=== PATIENT | female | born 1980 | race Caucasian/White ===

== ENCOUNTER 2017-07-16 07:56 | Inpatient (IN) | payer OTHER, BC ==
[~2017-07-16] VITALS: Ht 167.6 cm; Wt 72.6 kg
[2017-07-16] MEDS ORDERED: diphenhydrAMINE 50 MG CAPSULE PO PRN (16:00)
[2017-07-16] MEDS ORDERED: DICYCLOMINE HCL 20 MG TABLET PO PRN (16:00)
[2017-07-16] MEDS ORDERED: ONDANSETRON 4 MG/2 ML VIAL IM PRN (16:00)
[2017-07-16] MEDS ORDERED: LOPERAMIDE HCL 2 MG CAPSULE PO PRN ×2 (16:00)
[2017-07-16] MEDS ORDERED: ONDANSETRON ODT 4 MG TAB.RAPDIS SL PRN (16:00)
[2017-07-16] MEDS ORDERED: MAG HYDROX/AL HYDROX/SIMETH 30 ML LIQUID UDC PO PRN (16:00)
--- NOTE | 2017-07-16 16:05 | NUR ---
PRE ASSESSMENT Pt received in intake office. Pt states came from home. Pt 36 y/o female. Pt alert and oriented to name, place, and time. Perrla. Skin warm and dry to touch. Respirations even and unlabored. Pt with periods of closing eyes during assessment. Pt denies any sz history. VS wnl. jw=627/60 p=80 t=98.3 r=16 o2=96% @ ra. No distress noted at this time. Explained to pt of the unit rules with acknowledgment.
--- NOTE | 2017-07-16 16:09 | NUR ---
ADMISSION Pt 36 y/o female admitted for heroin methamphetamine dependence. Pt alert and oriented to name, place, and time. Perrla. Skin warm and dry to touch. Respirations even and unlabored. No hand tremors noted. Pt appears slightly disheveled. Pt with periods of closing eyes during assessment. Skin clear. Pt denies any seizure history. Pt states does not have pmd. Pt was seen by MD. Initial cows=6. Oriented pt to unit and room. No distress noted at this time. substance hx: - heroin smoke 1-2 gm daily x 1.5 years; last used 07/16/17 1/4 gm . total 12 years - methamphetamine smoke 8 ball in 5 days, used daily x 1.5 years; last used 07/16/17 1/4 gm; total 19 years - xanax po 1/2 of pink pill( not sure of dose) occasionally monthly or even longer; last used 06/09/17 1/2 of pink pill; total 2-3 years Pt denies any medical history treatment hx: [facility]
[2017-07-16] MEDS ORDERED: NICOTINE 14 MG/24HR PATCH TD PRN (16:15)
[2017-07-16] MEDS ORDERED: NICOTINE POLACRILEX 4 MG GUM-PK OF TEN BC PRN (16:15)
[2017-07-16 16:40] LABS: *AMPHETAMINE, URINE POSITIVE (NEGATIVE); *BARBITURATE, URINE NEGATIVE (NEGATIVE); *CANNABINOID, URINE NEGATIVE (NEGATIVE); *COCCAINE, URINE NEGATIVE (NEGATIVE); *OPIATE, URINE POSITIVE (NEGATIVE); *PHENCYCLIDINE SCREEN,URINE NEGATIVE (NEGATIVE)
[2017-07-16 17:19] LABS: *URINE HCG, QUAL NEGATIVE (NEGATIVE)
--- NOTE | 2017-07-16 18:30 | NUR ---
END OF SHIFT Pt 36 y/o female admitted for heroin cocaine dependence. Pt alert and oriented to name, place,and time. Perrla. Skin warm and dry to touch. Respirations even and unlabored. No hand tremors noted. Pt observed mostly in room and patio today. Pt was seen by MD today. Bed on lowest position with side rails x2up for safety. Call light within reach. No distress noted at this time.
[2017-07-16 18:41] LABS: BASOPHILS % (AUTO) 0.4 % (0.0-2.0); EOSINOPHILS # (AUTO) 0.2 K/uL (0.0-0.7); HEMATOCRIT 38.1 % (37-47); HEMOGLOBIN 12.3 G/DL (12.0-16.0); LYMPHOCYTES # (AUTO) 2.5 K/UL (0.8-4.8); LYMPHOCYTES % (AUTO) 31.5 % (20.5-51.5); MEAN CORPUSCULAR HEMOGLOBIN 27.9 UUG (27.0-31.0); MEAN CORPUSCULAR HGB CONC 32 g/dL (32.0-37.0); MEAN CORPUSCULAR VOLUME 86.3 FL (81.0-99.0); MONOCYTES # (AUTO) 0.6 K/UL (0.1-1.30); MONOCYTES % (AUTO) 7.5 % (0.0-11.0); NEUTROPHILS # (AUTO) 4.6 K/UL (1.8-8.9); NEUTROPHILS % (AUTO) 58.6 % (38.5-71.5); PLATELET COUNT (AUTO) 221 K/UL (150-450); RED BLOOD CELL COUNT(AUTO) 4.42 MIL/UL (4.2-5.4); WHITE BLOOD COUNT (AUTO) 7.9 K/UL (4.0-11.2)
[2017-07-16 18:43] LABS: ETHANOL < 3 MG/DL (0-0)
[2017-07-16 18:47] LABS: ALANINE AMINOTRANSFERASE 21 U/L (14-59); ALKALINE PHOSPHATASE 54 U/L (50-136); ASPARTATE AMINOTRANSFERASE 22 U/L (15-37); BILIRUBIN,TOTAL 0.2 mg/dL (0.2-1.0); CARBON DIOXIDE 30 mmol/L (21-32); CHLORIDE 104 mmol/L (98-107); CREATININE 0.8 mg/dL (0.6-1.3); GLUCOSE 98 mg/dL (74-106); MAGNESIUM 2.1 mg/dL (1.8-2.4); POTASSIUM 3.6 mmol/L (3.5-5.1); TOTAL PROTEIN, SERUM 6.9 g/dL (6.4-8.2); UREA NITROGEN, BLOOD 16 mg/dL (7-18)
[2017-07-16] MEDS: METHOCARBAMOL 750 MG TABLET PO PRN (19:06)
--- NOTE | 2017-07-16 19:08 | NUR ---
PRN Pt states has lower back aches 6/10. Robaxin po prn per MD order given and tolerated well.
--- NOTE | 2017-07-16 19:15 | NUR ---
START OF SHIFT Received 36 year old female patient admitted on 07/16/17 for Heroin, Methamphetamine and Xanax dependency. Pt is full code with NKA. She denies any PMHx or seizure history. She reports using Heroin (smoking) 1-2 grams daily for 1.5 years. Last dose was 1/4 gram on 07/16/17. Methamphetamine (smoke) 8 ball every 5 days for 1.5 years. Last dose was 1/4 gram on 07/16/17. And Xanax occasionally. Last dose was 0.25 mg on 06/09/17. Pt is scheduled to start 5 day Subutex taper on 07/17/17. Per endorsement, pt received PRN Robaxin for body aches. Pt is alert and oriented x4, breathing is even and unlabored. Safety measures in place. Will continue to monitor.
[2017-07-16 20:00] VITALS: BP 107/62
[2017-07-16] MEDS ORDERED: LORAZEPAM 1 MG TABLET PO ONE (21:00)
[2017-07-17] VITALS: BP 100/58
--- NOTE | 2017-07-17 | NUR ---
COWS/CIWA DEFERRED Pt lying in bed with eyes closed noted to be asleep. Respirations 16, breathing is even and unlabored. Safety measures in place. Will continue to monitor.
--- NOTE | 2017-07-17 04:00 | NUR ---
VITALS REFUSED, COWS/CIWA DEFERRED 0400 vitals refused. COWS and CIWA deferred d/t pt lying in bed with eyes closed noted to be asleep. Respirations 16, breathing is even and unlabored. Safety measures in place. Will monitor.
[2017-07-17] MEDS: BUPRENORPHINE HCL 2 MG TAB.SUBL SL PRN ×2 (05:42→10:06)
--- NOTE | 2017-07-17 05:43 | NUR ---
PRN SUBUTEX Pt complains of chills/sweats, restlessness, and body aches. COWS:12. PRN Subutex administered as ordered. Will monitor effectiveness.
--- NOTE | 2017-07-17 06:15 | NUR ---
PRN REASSESSMENT PRN medication effective. Pt is lying in bed with eyes closed noted to be asleep. No facial grimacing noted. Breathing even and unlabored. Safety measures in place. Will monitor.
--- NOTE | 2017-07-17 07:13 | NUR ---
END OF SHIFT Pt is a 36 year old female patient admitted on 07/16/17 for Heroin, Methamphetamine and Xanax dependency. Pt is full code with NKA. She received PRN Subutex 4 mg at 0542 for COWS of 12. Pt is scheduled to start 5 day Subutex taper today. She slept a total of 10 hrs, Intake: 680mL, Void: x2, BM:0, COWS:12, CIWA: 7. Pt remains alert and oriented x4, breathing is even and unlabored. Safety measures in place. Endorsed to oncoming shift.
--- NOTE | 2017-07-17 07:30 | NUR ---
START OF SHIFT Pt 36 y/o female admitted for heroin cocaine dependence. Pt received in room on bed awake. Pt alert and oriented to name, place,and time. Perrla. Skin warm and moist to touch. Respirations even and unlabored. Bilateral hand tremors noted. Pt appears restless in bed, with frequent position changing and irritable. It was reported that pt slept for 10 hours last night. Bed on lowest position with side rails x2up for safety. Call light within reach. No distress noted at this time.
[2017-07-17] MEDS: METHOCARBAMOL 750 MG TABLET PO PRN (08:06)
[2017-07-17] MEDS: BUPRENORPHINE HCL 2 MG TAB.SUBL SL SCH ×4 (08:07→20:33)
--- NOTE | 2017-07-17 08:14 | NUR ---
PRN Pt with c/o body aches 03/01. Robaxin po prn per MD order given and tolerated well.
--- NOTE | 2017-07-17 08:15 | NUR ---
PRN Pt with c/o nausea. Zofran odt prn per MD order given and tolerated well.
[2017-07-17 08:22] VITALS: BP 118/67
[2017-07-17] MEDS ORDERED: TUBERCULIN,PURIF.PROT.DERIV. 5 TU/0.1 ML TEST ID ONE (09:00)
[2017-07-17] MEDS ORDERED: GABAPENTIN 300 MG CAPSULE PO SCH (09:00)
--- NOTE | 2017-07-17 09:15 | NUR ---
PRN EVAL Pt states does not feel nauseated at this time.
--- NOTE | 2017-07-17 09:15 | NUR ---
PRN EVAL Pt states pain 5/10.
[2017-07-17] MEDS: IBUPROFEN 600 MG TABLET PO PRN (10:07)
[2017-07-17] MEDS: CLONIDINE HCL 0.1 MG TABLET PO PRN (10:07)
[2017-07-17] MEDS: HYDROXYZINE PAMOATE 25 MG CAPSULE PO PRN (10:07)
--- NOTE | 2017-07-17 10:19 | NUR ---
PRN Pt with cows=17. Subutex 4 mg sl prn per MD order given and tolerated well.
--- NOTE | 2017-07-17 10:20 | NUR ---
PRN Pt with c/o anxiety. Vistaril po prn per MD order given and tolerated well.
--- NOTE | 2017-07-17 10:20 | NUR ---
PRN Pt appears very anxious. Catapres po prn per MD order given and tolerated well.
--- NOTE | 2017-07-17 10:21 | NUR ---
PRN Pt with c/o aches of lower back 03/01. Motrin po prn per MD order given and tolerated well.
[2017-07-17] MEDS: ACETAMINOPHEN 325 MG TABLET PO PRN (10:24)
[2017-07-17] MEDS: LORAZEPAM 1 MG TABLET PO PRN (10:25)
--- NOTE | 2017-07-17 10:25 | NUR ---
PRN Pt appears agitated and very restless. Ativan 2mg po prn per MD orders given and tolerated well.
--- NOTE | 2017-07-17 10:28 | NUR ---
PRN Pt with c/o pain of bilateral legs 03/01. Tylenol po prn per MD order given and tolerated well.
--- NOTE | 2017-07-17 11:19 | NUR ---
PRN EVAL pt with cows=4.
--- NOTE | 2017-07-17 11:20 | NUR ---
PRN KRISTEL Pt observed on bed with eyes closed resting, but easily arousable to name. No distress noted at this time.
--- NOTE | 2017-07-17 11:21 | NUR ---
PRN KRISTEL Pt observed on bed with eyes closed resting, but easily arousable to name. No distress noted at this time.
--- NOTE | 2017-07-17 11:25 | NUR ---
PRN KRISTEL Pt observed on bed with eyes closed resting, but easily arousable to name. No distress noted at this time.
--- NOTE | 2017-07-17 11:28 | NUR ---
PRN KRISTEL Pt observed on bed with eyes closed resting, but easily arousable to name. No distress noted at this time.
[2017-07-17 12:00] VITALS: BP 113/66
--- NOTE | 2017-07-17 13:02 | NUR ---
NSG ENTRY Pt on bed with eyes closed resting, but easily arousable to name. Pt stated she does not want to take the subutex 4mg sl at this time. Told pt I will come back to offer the subutex4 mg sl at 1359. No distress noted at this time. cows=7
[2017-07-17] MEDS: GABAPENTIN 300 MG CAPSULE PO SCH ×2 (14:12→20:32)
[2017-07-17 16:00] VITALS: BP 103/61
--- NOTE | 2017-07-17 17:59 | NUR ---
END OF SHIFT Pt 36 y/o female admitted for heroin cocaine dependence. Pt alert and oriented to name, place,and time. Perrla. Skin warm and moist to touch. Respirations even and unlabored. Bilateral hand tremors noted. Pt with c/o body aches throughout this morning. Pt with periods of anxiety and agitation this morning. Pt observed mostly in room throughout the day. Pt did not attend group activity. Pt was seen by MD today. Pt medication compliant and tolerated well. No ASE noted. Bed on lowest position with side rails x2up for safety. Call light within reach. No distress noted at this time.
[2017-07-17 20:00] VITALS: BP 127/76
--- NOTE | 2017-07-17 20:00 | NUR ---
Start of Shift Notes Received 36 y/o female admitted 07/16/2017 for heroin cocaine dependence. A&Ox4. Px has NKA, on regular diet and on Full Code. Respirations even and unlabored. During the rounds, Px appears restless and emotional, worries about her . Complained about her constipation for 4 days. Bed on lowest position with side rails x2up for safety. Call light within reach. COWS 7. We'll continue to monitor.
--- NOTE | 2017-07-17 21:31 | NUR ---
COWS deferred COWS deferred due to the px is sleeping, to assess if the px is awake per doctor's order. Respirations are even and unlabored. We'll continue to monitor.
[2017-07-18] VITALS: BP 109/64
[2017-07-18] MEDS: MIRALAX 17 GM POWD.PACK PO PRN ×2 (02:45→20:22)
[2017-07-18] MEDS: METHOCARBAMOL 750 MG TABLET PO PRN ×2 (02:45→11:19)
--- NOTE | 2017-07-18 02:45 | NUR ---
PRN Robaxin and Miralax Px woke up complaining of body aches 06/01 as verbalized. Robaxin 750 mg/tab, 1 tab and Miralax 17 G mixed on 200 ml water given PO as PRN meds. We'll continue to monitor.
--- NOTE | 2017-07-18 03:45 | NUR ---
Pain reassessment Pain reassessment deferred due to the px is sleeping. We'll continue to monitor.
[2017-07-18 04:00] VITALS: BP 112/67
--- NOTE | 2017-07-18 07:19 | NUR ---
End of Shift Notes 36 y/o female admitted 07/16/2017 for heroin cocaine dependence. A&Ox4. Px has NKA, on regular diet and on Full Code. During the shift, Kee appears restless and emotional, worries about her . Complained about her constipation for 4 days and body aches 9/10 as verbalized. Robaxin 750 mg/tab, 1 tab and Miralax 17 G mixed with 200 ml water given PO as PRN meds. Oral intake 550 ml, voided 1x, no BM. Slept for 11 hrs. Respirations are even and unlabored. Bed on lowest position with side rails x2up for safety. Call light within reach. We'll continue to monitor.
--- NOTE | 2017-07-18 07:30 | NUR ---
START OF SHIFT Pt 36 y/o female admitted for heroin cocaine dependence. Pt received in room on bed with eyes closed resting, but easily arousable to name. Pt alert and oriented to name, place,and time. Perrla. Skin warm and moist to touch. Respirations even and unlabored. Bilateral hand tremors noted. It was reported that pt slept for 10.5 hours last night. Bed on lowest position with side rails x2 up for safety. Call light within reach. No distress noted at this time.
[2017-07-18 08:03] VITALS: BP 97/64
[2017-07-18] MEDS: GABAPENTIN 300 MG CAPSULE PO SCH ×3 (08:47→20:21)
[2017-07-18] MEDS: BUPRENORPHINE HCL 2 MG TAB.SUBL SL SCH ×3 (08:47→20:22)
[2017-07-18] MEDS: LORAZEPAM 1 MG TABLET PO PRN (10:00)
--- NOTE | 2017-07-18 10:00 | NUR ---
PRN Pt anxious and slightly agitated. Pt was seen by MD with orders to give the ativan po prn per MD orders, given and tolerated well.
[2017-07-18] MEDS: HYDROXYZINE PAMOATE 25 MG CAPSULE PO PRN ×2 (10:01→18:32)
[2017-07-18] MEDS: CLONIDINE HCL 0.1 MG TABLET PO PRN (10:02)
--- NOTE | 2017-07-18 10:05 | NUR ---
PRN Pt states feels very anxious. Some tears noted. Catapres po prn per MD orders given and tolerated well.
--- NOTE | 2017-07-18 10:11 | NUR ---
PRN Pt states feels anxious. Vistaril po prn per MD order given and tolerated well.
--- NOTE | 2017-07-18 11:00 | NUR ---
PRN KRISTEL Pt observed on bed with eyes closed resting, but easily arousable to name. No distress noted at this time.
--- NOTE | 2017-07-18 11:05 | NUR ---
PRN KRISTEL Pt observed on bed with eyes closed resting, but easily arousable to name. No distress noted at this time.
--- NOTE | 2017-07-18 11:11 | NUR ---
PRN KRISTEL Pt observed on bed with eyes closed resting, but easily arousable to name. No distress noted at this time.
[2017-07-18] MEDS: IBUPROFEN 600 MG TABLET PO PRN (11:20)
--- NOTE | 2017-07-18 11:23 | NUR ---
PRN Pt states has generalized body pain 5/10. Ibuprofen po prn per MD order given and tolerated well.
--- NOTE | 2017-07-18 11:23 | NUR ---
PRN Pt with c/o body aches 6/10 mostly in lower back. Roboxin po prn per MD order given and tolerated well.
[2017-07-18 12:07] LABS: HEPATITIS B SURFACE AG Negative (Negative)
--- NOTE | 2017-07-18 12:23 | NUR ---
PRN EVAL Pt observed on bed with eyes closed resting, but easily arousable to name. Pt states pain 2/10.
--- NOTE | 2017-07-18 12:23 | NUR ---
PRN EVAL Pt states body aches 11/01.
[2017-07-18 12:28] VITALS: BP 112/71
[2017-07-18] MEDS ORDERED: GUAIFENESIN SUGAR FREE 100 MG/5 ML UDC PO PRN (13:15)
[2017-07-18 17:00] VITALS: BP 102/64
[2017-07-18] MEDS ORDERED: LORAZEPAM 1 MG TABLET PO PRN (17:45)
[2017-07-18] MEDS ORDERED: KETOROLAC TROMETHAMINE 30 MG INJ IM PRN (17:45)
[2017-07-18] MEDS: ACETAMINOPHEN 325 MG TABLET PO PRN (18:32)
--- NOTE | 2017-07-18 18:39 | NUR ---
PRN Pt states has generalized body pain 6/10. Tylenol po prn per MD order given and tolerated well.
--- NOTE | 2017-07-18 18:40 | NUR ---
PRN Pt with c/o cough and chest congestion. Robitussin oral solution prn per MD order given and tolerated well.
--- NOTE | 2017-07-18 18:40 | NUR ---
PRN Pt states feels anxious. Vistaril po prn per MD order given and tolerated well.
[2017-07-18 20:00] VITALS: BP 106/61
--- NOTE | 2017-07-18 20:00 | NUR ---
Start of Shift Notes Received 36 y/o female admitted 07/16/2017 for heroin cocaine dependence. A&Ox4. Px has NKA, on regular diet and on Full Code. Respirations even and unlabored. During the rounds, Px appears anxious and complained about her constipation for 5 days already as verbalized. Px reported congestion and cough, O2sat= 95%, RR= 20, Rales on both lower lungs on auscultation. Advised to walk more often, drink water 2-3 L or as tolerated. Bed on lowest position with side rails x2up for safety. Call light within reach. We'll continue to monitor.
[2017-07-18] MEDS: CLONIDINE HCL 0.1 MG TABLET PO SCH (20:21)
--- NOTE | 2017-07-18 20:22 | NUR ---
PRN Miralax Px complained of constipation for 5 days. Miralax 17 G mixed with 200 ml water given PO as PRN med. We'll continue to monitor.
[2017-07-18] MEDS ORDERED: LORAZEPAM 1 MG TABLET PO ONE (21:00)
--- NOTE | 2017-07-18 21:00 | NUR ---
Ativan held During the rounds at 1930, px was sleeping, px need to be called by name with tap on a shoulder to be awaken. COWS 2. Ativan 1 mg/tab, 2 tabs PO held. After the medications given and VS taken, px went back to sleep.
[2017-07-19] VITALS: BP 100/60
[2017-07-19 04:00] VITALS: BP 101/60
--- NOTE | 2017-07-19 07:13 | NUR ---
End of Shift Notes 36 y/o female admitted 07/16/2017 for heroin cocaine dependence. A&Ox4. Px has NKA, on regular diet and on Full Code. Respirations even and unlabored. During the shift, px was mostly asleep, px need to be called by name with tap on a shoulder to be awaken. Ativan 1 mg/tab, 2 tabs PO held at 2100. Px appears anxious and complained about her constipation for 5 days and congestion with cough, Rales noted on both lower lungs on auscultation. Miralax 17 G mixed with 200 ml water given PO as PRN med. Advised to walk more often and drink water 2-3 L or as tolerated. Oral intake of 1,300 ml, voided 3x, no BM. Slept for 10 hrs. Last COWS 2. Bed on lowest position with side rails x2up for safety. Call light within reach. We'll continue to monitor.
--- NOTE | 2017-07-19 07:14 | NUR ---
Start of Shift Notes: Received patient in her room. Alert and verbally responsive. Oriented x 4. Able to make her needs known. Respirations even and unlabored. No SOB noted. Skin warm and dry to touch. Abdomen soft and non-distended. BS (+) in all 4 quadrants. No complains of N/V/D or constipation noted. No abdominal discomfort noted. Bladder non-distended. No complains of dysuria noted. Voids independently. Ambulatory ad yonas with steady gait. Patient is a 36 year old female admitted for opiate/meth and BZO dependence who was placed on a 5-day Subutex taper as ordered. No adverse reactions noted. Prior to admission, patient was using 1-2 grams of Heroin, 8 ball of methamphetamine, and occasional Xanax. NKA. FULL CODE. Regular diet. HCV (+). Educated patient on her current plan of care for the day and her medication regimen. Encouraged oral fluid intake and encouraged group participation to learn new skills to prevent relapse. Will continue to monitor.
[2017-07-19 08:00] VITALS: BP 113/71
[2017-07-19] MEDS ORDERED: BUPRENORPHINE HCL 2 MG TAB.SUBL SL SCH (09:00)
[2017-07-19] MEDS: GABAPENTIN 300 MG CAPSULE PO SCH ×3 (09:00→20:19)
[2017-07-19] MEDS: CLONIDINE HCL 0.1 MG TABLET PO SCH ×2 (09:01→20:36)
[2017-07-19] MEDS ORDERED: MIRALAX 17 GM POWD.PACK PO PRN (11:30)
[2017-07-19] MEDS ORDERED: MAGNESIUM CITRATE 296 ML BOTTLE PO PRN (11:30)
[2017-07-19 12:00] VITALS: BP 111/62
[2017-07-19] MEDS: BUPRENORPHINE HCL 2 MG TAB.SUBL SL SCH ×2 (14:36→20:19)
[2017-07-19 16:00] VITALS: BP 108/65
--- NOTE | 2017-07-19 17:17 | NUR ---
Client was prompted by therapist to attend daily groups, and was informed of group times. Client stated he would attend.
--- NOTE | 2017-07-19 18:00 | NUR ---
MD Communication: Notified MD that patient verbalizes complain of feeling dehydrated. Intake 500cc during the day. Voided x 1. Appetite poor. 25% of meals consumed. Order obtained from MD Reis for patient to receive 2 bag of IV d51/2 NS at 75cc/hr x 2 bag. MD is unable to enter in orders at this time.
--- NOTE | 2017-07-19 18:16 | NUR ---
Mag Citrate PO given: Patient complained of constipation. No relief noted from Miralax that was given from last night. Medicated patient with Mag Citrate as ordered. Will monitor for effectiveness.
--- NOTE | 2017-07-19 18:20 | NUR ---
IV line insertion: Inserted IV to patient's left forearm via aseptic technique. Attempted x 1 with good blood return. Patient education provided before inserting IV. Patient verbalized good understanding. Tourniquet release and flushed adequately with NS per unit protocol. Patient tolerated well.
--- NOTE | 2017-07-19 19:09 | NUR ---
End of Shift Notes: Patient continues to be on 5-day Subutex taper as ordered. No adverse reactions noted. Taper is tolerating taper well. VS monitored closely. No significant abnormalities noted. Withdrawal symptoms were closely monitored. Initial COWS 7, patient presented with restlessness, mild myalgia, anxiety, chills and hot flashes. Last COWS 3. Per patient, Subutex has been effective in reducing her withdrawal symptoms. Mag Citrate given at 1816 for constipation. Results pending. IV inserted to patient's left forearm. Tolerated well. IV site patient and intact. Flushed adequately per unit protocol. Patient is compliant with care and treatment. Appetite fair. Requires encouragement to participate in group and activities. All needs met and attended. Will continue to monitor closely.
[2017-07-19 20:00] VITALS: BP 103/60
--- NOTE | 2017-07-19 20:00 | NUR ---
Start of Shift Pt is a 36 year old female admitted for Opiate dependence, placed on 5 day Subutex taper. Pt reported using Heroin via smoke 1-2g/daily, methamphetamine via smoke 8 ball every 5 days and occasional use of Xanax. Pt denies past medical history, denies sz history, fall/sz precautions, regular diet, NKA and full code. 21 Gauge IV on left forearm, intact/patient with no s/s of redness or swelling, D5% NS running at 75mls/hr. At time of assessment, pt reports feeling body/joint aches, fatigue, skin is noted to be clammy/flushed, respirations even/unlabored, denies SOB/chest pain, denies n/v/d, medications due, safety measures in place, call light within reach, side rails up x2, bed locked and in low position. Will continue to monitor.
[2017-07-19] MEDS: SENNOSIDES 1 TABLET PO SCH (20:20)
[2017-07-19] MEDS: IV D5 1/2 NS 1000 ML 1,000 ML IV PRN (20:25)
--- NOTE | 2017-07-19 21:00 | NUR ---
Pt refused scheduled Clonidine 0.1mg, risks/benefits explained x3 Pt continued to refused. Safety measures in place, will continue to monitor.
[2017-07-20] VITALS: BP 106/57
--- NOTE | 2017-07-20 | NUR ---
Vital Signs/COWS deferred BP 106/57, pulse 70, resp 16, SpO2 96% room air, temp 98, no pain COWS deferred due to pt sleeping, to assess while pt is awake as ordered. Safety measures in place, will continue to monitor.
[2017-07-20 04:00] VITALS: BP 99/63
--- NOTE | 2017-07-20 04:00 | NUR ---
Vital Signs/COWS deferred BP 99/63, pulse 62, resp 16, SpO2 97% room air, temp 98, no pain COWS deferred due to pt sleeping, to assess while pt is awake as ordered. Safety measures in place, will continue to monitor.
--- NOTE | 2017-07-20 06:59 | NUR ---
End of Shift Pt is a 36 year old female admitted for Opiate dependence, placed on 5 day Subutex taper. Pt reported using Heroin via smoke 1-2g/daily, methamphetamine via smoke 8 ball every 5 days and occasional use of Xanax. Pt denies past medical history, denies sz history, fall/sz precautions, regular diet, NKA and full code. 21 Gauge IV on left forearm, intact/patient with no s/s of redness or swelling, D5% NS running at 75mls/hr. During shift, pt reported feeling body/joint aches, fatigue, skin noted to be clammy/flushed scheduled taper medications administered, COWS 5. Scheduled Senokot 2 tabs administered no reports of bowel movement as of yet. Pt refused scheduled Clonidine 0.1mg, risks/benefits explained. Pt slept for 9 hours, intake of 855 ml PO, voids x2 and stool x0. Safety measures in place, call light within reach, side rails up x2, bed locked and in low position. Endorsed to day shift nurse.
[2017-07-20 08:00] VITALS: BP 100/52
[2017-07-20] MEDS: BUPRENORPHINE HCL 2 MG TAB.SUBL SL SCH ×3 (08:27→20:54)
[2017-07-20] MEDS: GABAPENTIN 300 MG CAPSULE PO SCH ×3 (08:27→20:53)
[2017-07-20] MEDS: CLONIDINE HCL 0.1 MG TABLET PO SCH ×2 (08:27→20:53)
--- NOTE | 2017-07-20 10:00 | NUR ---
MD Communication: Labs MD Reis notified of patient's Hep C results.
[2017-07-20] MEDS: IV D5 1/2 NS 1000 ML 1,000 ML IV PRN (11:03)
[2017-07-20 12:00] VITALS: BP 106/62
--- NOTE | 2017-07-20 14:38 | NUR ---
MD Communication: Patient verbalized that she does not want to have the IV fluids anymore. Notified Dr. Aparicio. Per MD, OK to discontinue IV at this time.
--- NOTE | 2017-07-20 14:39 | NUR ---
IV DC'd: IV orders discontinued. IV site to left forearm removed. Pressure applied x 3 minutes. Patient tolerated well. No signs of active bleeding noted. No s/s of infiltration noted.
[2017-07-20 16:00] VITALS: BP 125/80
--- NOTE | 2017-07-20 18:53 | NUR ---
End of Shift Notes: Patient continues to be on 5-day Subutex taper as ordered. No adverse reactions noted. Taper is tolerating taper well. VS monitored closely. No significant abnormalities noted. Withdrawal symptoms were closely monitored. Initial COWS 6, patient presented with restlessness, mild myalgia, anxiety, chills and hot flashes. Last COWS 3. Per patient, Subutex has been effective in reducing her withdrawal symptoms. IV site discontinued. Patient is compliant with care and treatment. Appetite fair. Requires encouragement to participate in group and activities due to episodes of self isolation. All needs met and attended. Will continue to monitor closely.
--- NOTE | 2017-07-20 19:50 | NUR ---
START OF SHIFT Received report from day shift nurse. Pt is lying in bed resting. She is a 36 yo female admitted to [facility] on 07/16 for opiate dependence. She is A&O and ambulatory. NKA, full code status, and on a regular diet. PMH of Hepatitis C. On admission she reported using heroin 1-2 grams per day, methamphetamine "8 ball" every 5 days, and Xanax occasionally. Pt started a 5 day subutex taper on 07/17. She reports mild headache. Fall and seizure precautions in place. Bed is down with call light in reach.
[2017-07-20 20:00] VITALS: BP 115/64
[2017-07-20] MEDS: ACETAMINOPHEN 325 MG TABLET PO PRN (20:54)
[2017-07-20] MEDS: SENNOSIDES 1 TABLET PO SCH (20:54)
--- NOTE | 2017-07-20 20:55 | NUR ---
PRN Tylenol Pt reports mild headache and neck ache. PRN Tylenol administered.
--- NOTE | 2017-07-20 21:55 | NUR ---
PRN Tylenol reassessment PRN Tylenol effective. Pt is lying in bed resting with eyes closed. Respirations even and unlabored. Safety measures in place.
[2017-07-21] VITALS: BP 92/41
--- NOTE | 2017-07-21 | NUR ---
0000 COWS deferred COWS ordered Q4HWA. Pt is lying in bed resting with eyes closed. Vital signs obtained. Safety measures in place.
[2017-07-21 04:00] VITALS: BP 97/56
--- NOTE | 2017-07-21 04:00 | NUR ---
0400 COWS deferred COWS ordered Q4HWA. Pt is lying in bed resting with eyes closed. Vital signs obtained. Safety measures in place.
--- NOTE | 2017-07-21 07:12 | NUR ---
END OF SHIFT Report provided to day shift nurse. Pt is lying in bed resting. She is a 36 yo female admitted to [facility] on 07/16 for opiate dependence. She is A&O and ambulatory. NKA, full code status, and on a regular diet. PMH of Hepatitis C. Upon admission she admitted to using heroin 1-2 grams per day, methamphetamine 8 ball every 5 days, and xanax occasionally. 5 day subutex taper was started on 07/17. She is compliant with treatment. PRN Tylenol administered. Last COWS 6 before night medications. She drank 1355mL and slept 9 hours. Fall and seizure precautions in place. Bed is down with call light in reach.
--- NOTE | 2017-07-21 07:30 | NUR ---
START OF SHIFT Pt is a 36 yr old female, AA&Ox4. Pt was admitted on 07/16/17 for Opiate Dependence and is on 5 day Subutex taper as ordered. Medication juancho well. Received report from car shifter nurse. Pt received Tylenol PRN for headache. Medication was effective. Pt slept for 9 hrs during the night. Last COWS score was 6 at 1999. Pt is currently in bed resting with respirations even and unlabored. No acute distress noted. Skin is intact, warm and dry to touch. Pt denies any n/v. Safety precautions observed. Bed kept in low position and locked with side rails up x2. Call light is within reach. Will continue to monitor.
[2017-07-21 08:00] VITALS: BP 102/61
[2017-07-21] MEDS: GABAPENTIN 300 MG CAPSULE PO SCH ×3 (08:57→20:52)
[2017-07-21] MEDS: CLONIDINE HCL 0.1 MG TABLET PO SCH ×2 (08:58→20:52)
[2017-07-21] MEDS ORDERED: BUPRENORPHINE HCL 2 MG TAB.SUBL SL SCH (09:00)
[2017-07-21 12:00] VITALS: BP 121/67
[2017-07-21 16:00] VITALS: BP 125/71
[2017-07-21] MEDS ORDERED: HYDR-3895 PO (18:50)
[2017-07-21] MEDS ORDERED: DICY20TA28 PO (18:50)
[2017-07-21] MEDS ORDERED: CLON0.1T14 PO (18:50)
[2017-07-21] MEDS ORDERED: IBUP-1955 PO (18:50)
[2017-07-21] MEDS ORDERED: METH-406 PO (18:50)
[2017-07-21] MEDS ORDERED: DIPH50CA37 PO (18:50)
[2017-07-21] MEDS ORDERED: GABA-534 PO ×2 (18:50)
--- NOTE | 2017-07-21 18:54 | NUR ---
END OF SHIFT Pt is a 36 yr old female, AA&Ox4. Pt was admitted on 07/16/17 for Opiate Dependence and has completed a 5 day Subutex taper as ordered. Medication juancho well. Pt has been cooperative with medication regimen and plan of care. Pt was observed attending group sessions. No PRN's were given during the day. Last COWS score was 2 at 1600. Pt is c/o mild anxiety but is able to cope with anxiety level. Skin is intact, warm and dry to touch. No tremors seen or felt. Pt denies any n/v. No SI/HI noted. Pt is to be discharged tomorrow. Safety precautions observed. Bed kept in low position and locked with side rails up x2. Call light is within reach.
--- NOTE | 2017-07-21 19:55 | NUR ---
START OF SHIFT Received report from day shift nurse. Pt attended a group meeting and returned to her room after. She is a 36 yo female admitted to [facility] on 07/16 for opiate dependence. She is A&O and ambulatory. NKA, full code status, and on a regular diet. PMH of Hepatitis C. On admission she reported using heroin 1-2 grams per day, methamphetamine "8 ball" every 5 days, and Xanax occasionally. Pt completed a 5 day subutex taper and is scheduled for discharge tomorrow. She reports runny nose. No other s/s of withdrawal. Fall and seizure precautions in place. Bed is down with call light in reach.
[2017-07-21 20:00] VITALS: BP 128/79
[2017-07-21] MEDS: SENNOSIDES 1 TABLET PO SCH (20:53)
[2017-07-22] VITALS: BP 98/54
--- NOTE | 2017-07-22 | NUR ---
0000 COWS deferred COWS ordered Q4HWA. Pt is lying in bed resting with eyes closed. Respirations even and unlabored. Vital signs obtained. Safety measures in place.
--- NOTE | 2017-07-22 04:00 | NUR ---
0400 Vitals refused/COWS deferred Pt refused to be woken for 0400 vitals. She is lying in bed resting with eyes closed. Respirations even and unlabored. COWS ordered Q4HWA. Safety measures in place.
--- NOTE | 2017-07-22 07:12 | NUR ---
END OF SHIFT Report provided to day shift nurse. Pt is lying in bed resting. She is a 36 yo female admitted to [facility] on 07/16 for opiate dependence. She is A&O and ambulatory. NKA, full code status, and on a regular diet. PMH of Hepatitis C. On admission she reported using heroin 1-2 grams per day, methamphetamine "8 ball" every 5 days, and Xanax occasionally. Pt completed a 5 day subutex taper and is scheduled for discharge today. No PRN medications administered. Last COWS was 2. She drank 2898mL and slept for 8 hours. Fall and seizure precautions in place. Bed is down with call light in reach.
--- NOTE | 2017-07-22 07:13 | NUR ---
Start of Shift Notes: Received patient in her room. Alert and verbally responsive. Oriented x 4. Able to make her needs known. Respirations even and unlabored. No SOB noted. Skin warm and dry to touch. Abdomen soft and non-distended. BS (+) in all 4 quadrants. No complains of N/V/D or constipation noted. No abdominal discomfort noted. Bladder non-distended. No complains of dysuria noted. Voids independently. Ambulatory ad yonas with steady gait. Patient is a 36 year old female admitted for opiate/meth and BZO dependence who was placed on a 5-day Subutex taper as ordered. No adverse reactions noted. Prior to admission, patient was using 1-2 grams of Heroin, 8 ball of methamphetamine, and occasional Xanax. NKA. FULL CODE. Regular diet. HCV (+). Patient will be discharging today. Educated patient on the discharge process. Will continue to monitor.
[2017-07-22 08:00] VITALS: BP 125/72
[2017-07-22 08:02] VITALS: BP 125/71
[2017-07-22] MEDS: GABAPENTIN 300 MG CAPSULE PO SCH (08:02)
[2017-07-22] MEDS: CLONIDINE HCL 0.1 MG TABLET PO SCH (08:02)
--- NOTE | 2017-07-22 09:53 | NUR ---
DISCHARGE NOTE Pt is in stable condition. Vitals WNL, Pt alert and oriented x4, skin intact, Pt denies any SI/HI. All discharge paperwork completed dated and signed. Pt educated about discharge instructions, what to do after discharge when to contact MD as well as the s/s reportable to MD, pt verbalized understanding Pts last COWS 1. Pt was discharged from [facility] on 07/22/2017 at 0953. Pt left the building with all of his belongings and medications. MD has been contacted and aware of pts d/c.
== END 2017-07-22 09:53 | disposition home or self-care (01) | DRG 895 ==
LOC: SRC 15:13
PROVIDERS: ADMIT Internal Medicine; ATTEND Internal Medicine
PROC: HZ2ZZZZ Detoxification Services for Substance Abuse Treatment (ICD-10-PCS; principal; 2017-07-16)
PROC: HZ31ZZZ Individual Counseling for Substance Abuse Treatment, Behavioral (ICD-10-PCS; 2017-07-19)
PROC: HZ41ZZZ Group Counseling for Substance Abuse Treatment, Behavioral (ICD-10-PCS; 2017-07-21)
DX: F11.23 Opioid dependence with withdrawal (principal); B19.20 Unspecified viral hepatitis C without hepatic coma; G89.29 Other chronic pain; F41.9 Anxiety disorder, unspecified; F15.23 Other stimulant dependence with withdrawal; F17.210 Nicotine dependence, cigarettes, uncomplicated; K59.00 Constipation, unspecified; M50.80 Other cervical disc disorders, unspecified cervical region; M54.5 Low back pain; Z81.8 Family history of other mental and behavioral disorders; Z81.3 Family history of other psychoactive substance abuse and dependence
CPT/HCPCS: 36415; 70030-TC; 80307; 80324; 80361; 83735; 84703; 85025; 86580; 86592; 86705; 86803; 87340; 87806; G0480; J3490; Q0162

== ENCOUNTER 2018-01-26 21:53 | Inpatient (IN) | payer OTHER, BC ==
[~2018-01-26] VITALS: Ht 167.6 cm; Wt 72.6 kg
[~2018-01-26 21:53] MED LIST: CLON0.1T14 PO; DICY20TA28 PO; DIPH50CA37 PO; GABA-534 PO; HYDR-3895 PO; IBUP-1955 PO; METH-406 PO
--- NOTE | 2018-01-26 22:28 | NUR ---
PREADMISSION NOTE Pt. assessed in intake office. Pt. is A/O to person, place, time, and purpose. Pt. states daily use of smoking Heroin and Methamphetamines. Pt. presents anxious, fidgety, restless, disheveled appearance, avoidant eye contact. Pt. also states 9/10 back pain that is sharp, begins in her right lower back and radiates to her hips, it is worse in the morning, and seems to be relieved only by medication. Pt. has no medical Hx or h/o withdrawal induced seizure. Pt.'s V/S are: P: 92, RR: 18, O2Sat: 98%, and BP: 117/93. Pt. has been seen by Dr. Aparicio. Pt. is able to come unto the unit.
[2018-01-26] MEDS ORDERED: IBUPROFEN 600 MG TABLET PO PRN (22:30)
[2018-01-26] MEDS ORDERED: LORAZEPAM 1 MG TABLET PO PRN (22:30)
[2018-01-26] MEDS ORDERED: ONDANSETRON 4 MG/2 ML VIAL IM PRN (22:30)
[2018-01-26] MEDS ORDERED: DICYCLOMINE HCL 20 MG TABLET PO PRN (22:30)
[2018-01-26] MEDS ORDERED: METHOCARBAMOL 750 MG TABLET PO PRN (22:30)
[2018-01-26] MEDS ORDERED: ACETAMINOPHEN 325 MG TABLET PO PRN (22:30)
[2018-01-26] MEDS ORDERED: MAGNESIUM HYDROXIDE 30 ML LIQUID UDC PO PRN (22:30)
[2018-01-26] MEDS ORDERED: LOPERAMIDE HCL 2 MG CAPSULE PO PRN ×2 (22:30)
[2018-01-26] MEDS ORDERED: BUPRENORPHINE HCL 2 MG TAB.SUBL SL PRN (22:30)
[2018-01-26] MEDS ORDERED: MAG HYDROX/AL HYDROX/SIMETH 30 ML LIQUID UDC PO PRN (22:30)
[2018-01-26 23:09] LABS: ALANINE AMINOTRANSFERASE 25 U/L (14-59); ALKALINE PHOSPHATASE 60 U/L (50-136); ASPARTATE AMINOTRANSFERASE 15 U/L (15-37); BASOPHILS # (AUTO) 0.1 K/uL (0.0-8.0); BASOPHILS % (AUTO) 0.4 % (0.0-2.0); BILIRUBIN,TOTAL 0.2 mg/dL (0.2-1.0); CARBON DIOXIDE 28 mmol/L (21-32); CHLORIDE 103 mmol/L (98-107); CREATININE 0.7 mg/dL (0.6-1.3); EOSINOPHILS # (AUTO) 0.2 K/uL (0.0-0.7); EOSINOPHILS % (AUTO) 1.7 % (0.0-7.0); GLUCOSE 87 mg/dL (74-106); HEMATOCRIT 36.5 % (31.2-41.9); HEMOGLOBIN 12.3 g/dL (10.9-14.3); LYMPHOCYTES # (AUTO) 3.1 K/uL (20.0-40.0); LYMPHOCYTES % (AUTO) 25.3 % (20.5-51.5); MAGNESIUM 2.1 mg/dL (1.8-2.4); MEAN CORPUSCULAR HEMOGLOBIN 28.5 uug (24.7-32.8); MEAN CORPUSCULAR HGB CONC 34 g/dL (32.3-35.6); MEAN CORPUSCULAR VOLUME 84.8 fL (75.5-95.3); MONOCYTES # (AUTO) 1.1 K/uL (2.0-10.0); MONOCYTES % (AUTO) 9.3 % (0.0-11.0); NEUTROPHILS # (AUTO) 7.7 K/uL (1.8-8.9); NEUTROPHILS % (AUTO) 63.3 % (38.5-71.5); PLATELET COUNT (AUTO) 240 K/uL (179-408); POTASSIUM 3.8 mmol/L (3.5-5.1); TOTAL PROTEIN, SERUM 7.2 g/dL (6.4-8.2); UREA NITROGEN, BLOOD 19 mg/dL (7-18); WHITE BLOOD COUNT (AUTO) 12.2 K/uL (3.8-11.8)
[2018-01-26 23:10] LABS: ETHANOL < 3 MG/DL (0-0)
--- NOTE | 2018-01-26 23:23 | NUR ---
ADMISSION NOTE Pt. is a 37 y/o female being admitted for medically supervised withdrawal from heroin. The pt. is currently intoxicated and is not currently experiencing withdrawal symptoms. Pt. is A/O to person, place, time, and purpose. Pt. presents with flat affect, restless, fidgety, and with avoidant eye contact. Pt. appears to have no edema or swelling in her legs. Pt. states that typical s/s of withdrawal for her includes: anxiety, agitation, and body aches. Pt. denies any h/o seizures. Pt. states that she was diagnosed previously with drug induced bipolar disorder. Pt. states current substance use as follows: 1. Heroin: 1 g daily for the past 5 mos. Pt.s last use was on 01/26/18 @ 1500. Pt. first began using 13 yrs. ago. 2. Methamphetamines: 10/07 weekly for the past 5 mos. Pt.s last use was on 01/26/18 @ 1500. Pt. first began using 14 yrs. ago. Pt. states that they are seeking treatment today because her has cancer that has come out of remission. Pt. states that I want to be there for him. Pt. has been to treatment in the past. The most recent was [facility] in June of last year. However, she relapsed as soon as she went home. Pt. states this time will be different because, I really want it. Pt. knows that she needs help and support cope with stress and stay sober. V/S are T: 97.7, HR: 68, RR: 16, O2Sat: 96%, and BP: 131/80. Pt.s respirations are even and unlabored. Pt.s skin is intact. Pt.s height is 56 and weight is 160 lbs. Pt. has no known allergies. Pt.s PCP is Dr. Shawn Mueller. Pt has no known medical Hx. Pt. has no long-term hospital visits. Pt. states they smoke 1 cigarette per day on average. Urine was collected. All safety measures have been initiated, as well as, universal precautions. Call light is within reach and bed is in the lowered position. Pt. will continue to be monitored and needs met.
[2018-01-26] MEDS ORDERED: LORAZEPAM 1 MG TABLET PO SCH (23:30)
[2018-01-27] VITALS: BP 131/80
--- NOTE | 2018-01-27 | NUR ---
RN NOTE Pt. deferred COWS. V/S stable, breathing is even and unlabored. Pt. is in bed w/ her eyes closed.
[2018-01-27 01:29] LABS: *BARBITURATE, URINE NEGATIVE (NEGATIVE); *CANNABINOID, URINE NEGATIVE (NEGATIVE); *COCCAINE, URINE NEGATIVE (NEGATIVE); *OPIATE, URINE POSITIVE (NEGATIVE); *PHENCYCLIDINE SCREEN,URINE NEGATIVE (NEGATIVE)
[2018-01-27 01:37] LABS: *URINE HCG, QUAL NEGATIVE (NEGATIVE)
[2018-01-27 01:49] LABS: *AMPHETAMINE, URINE POSITIVE (NEGATIVE)
--- NOTE | 2018-01-27 04:00 | NUR ---
RN NOTE Pt. deferred COWS and refused V/S. Pt. is in bed w/ her eyes closed. Pt.'s breathing is even and unlabored.
--- NOTE | 2018-01-27 07:01 | NUR ---
END OF SHIFT NOTE Endorsed pt. to oncoming nurse. Pt. is in his bed and is A/O to person, place, time, and purpose. Pt. present with anxiety, flat affect, depression, racing thoughts, restlessness, and insomnia. Pt. is complaint with treatment plan. Pt. received PRN Benadryl 50 mg, Clonidine 0.1 mg, and Vistaril 25 mg @ 2321 for anxiety, restlessness, and insomnia. BP was 130/90. Pt. was not responsive to medications. Pt. also then received PRN Trazodone 50 mg @ 0204 for continued insomnia, noted effective. Pt.s fluid intake [id number] ml. Pt. slept for 5 hrs. Last CIWA 5 @ 0000. Call light within reach and bed in lowered positions. Addendum: 01/27/18 at 0702 by PRIMO AVILA RN Documented wrong patient.
--- NOTE | 2018-01-27 07:12 | NUR ---
END OF SHIFT NOTE Endorsed pt. to oncoming nurse. Pt. is in her room and is A/O to person, place, time, and purpose. Pt. was moderately intoxicated and mildly withdrawing during admission process. Pt. presents anxious w/ a disheveled appearance. Pt. received a onetime dose of Ativan 2 mg @ 0000. No PRN medications were given. V/S were stable throughout shift. Pt.s fluid intake was 500 ml. Pt. slept for 6 hrs. Pt. was unable to have COWS assessed properly due to sleep. Call light within reach and bed in lowered position.
[2018-01-27 08:00] VITALS: BP 121/68
--- NOTE | 2018-01-27 08:10 | NUR ---
START OF SHIFT: RECEIVED PT LAYING IN BED A/O X 4. SHE REPORTS BODY ACHES,SWEATS AND CHILLS. SHE ALSO REPORTS FATIGUE. HER SKIN IS MOIST AND FACE IS FLUSHED. SUBUTEX 4MG TO BE ADMINISTERED TO MANAGE S/S OF W/D. COWS 12. ENCOURAGED INCREASED FLUIDS AND REST TODAY. SHE REFUSED PPD AND STATES SHE WAS HERE IN NOVEMBER AND HAD IT THEN. WILL CONTINUE TO MONITOR AND MANAGE S/S OF W/D.
[2018-01-27] MEDS: BUPRENORPHINE HCL 2 MG TAB.SUBL SL SCH ×3 (08:42→20:03)
[2018-01-27] MEDS ORDERED: TUBERCULIN,PURIF.PROT.DERIV. 5 TU/0.1 ML TEST ID ONE (09:00)
[2018-01-27] MEDS: CLONIDINE HCL 0.1 MG TABLET PO PRN ×2 (10:22→23:27)
--- NOTE | 2018-01-27 10:25 | NUR ---
PRN CLONIDINE GIVEN FOR REPORTED SWEATS CHILLS AND BODY ACHES. WILL MONITOR EFFECTIVENESS OF PRN MEDS.
[2018-01-27] MEDS ORDERED: GABAPENTIN 300 MG CAPSULE PO ONE ×2 (11:15→12:45)
[2018-01-27] MEDS ORDERED: LORAZEPAM 1 MG TABLET PO ONE ×2 (11:15→12:45)
--- NOTE | 2018-01-27 11:25 | NUR ---
PRN CLONIDINE AND ROBAXIN EFFECTIVE PT IS LAYING IN BED WITH EYES CLOSED RESPIRATIONS EVEN AND UNLABORED. BED LOCKED AND LOW. CALL GONZALEZ IN REACH.
[2018-01-27 12:00] VITALS: BP 112/68
--- NOTE | 2018-01-27 18:52 | NUR ---
START OF SHIFT NOTE: Presented 37 year oldfe male patient continues 5 day Subutex Taper ordered for Opiate/Heroine and Methamphetamine withdrawal. Patient tolerated well. Withdrawal symptoms monitoring closely. Patient is alert and oriented x4. She is appears with anxious mood, irritable, worry,and sad with avoidant eye contact. Emotional support and reassuring provided. Patient encouraged to express her feelings. Patient noted disheveled, unkempt with uncombed hair. Educated in safety and hygiene care. Encouraged to independently perform hygiene care. Most recent COWS=8 @1600 per day shift nurse report. Patient presented with anxiety, agitation, nervousness, tremors, sweating, restlessness, fatigue, myalgia, and body aches. PRN Clonidine 0.1 mg PO administrated for anxiety as ordered at 1022, and PRN Robaxin 750 mg PO administrated for myalgia at 1022 as ordered were effective per day shift nurse report. Patient remains compliant with treatment, medications, and diet regime per day shift nurse report. Encouraged to fluids intake as tolerated. Encouraged to attend group activities. All needs met. Safety measures in place: Call light within reach, bed is locked in lowest position, padded bed rails up bilaterally. Patient endorsed by outgoing day shift nurse. Will continue to monitor closely.
--- NOTE | 2018-01-27 18:52 | NUR ---
END OF SHIFT: PT. STARTED SUBUTEX TAPER TO MANAGE S/S OF W/D PER MD. LAST COWS 8. SHE C/O SWEATS,CHILLS.BODY ACHES ANXIETY AND IRRITABILITY. PT STAYED IN BED AND SLEPT ON AND OFF MOST OF SHIFT. HER MOOD IS LABILE AND SHE CAN BECOME AGITATED EASILY.SHE WAS GIVEN ONE TIME ATIVAN AND GABAPENTIN PER MD AND IT WAS EFFECTIVE. SHE WAS ALSO GIVEN ROBAXIN AND CLONIDINE TO ASSIST IN MANAGING S/S OF W/D. SHE WAS COMPLIANT WITH INCREASED FLUIDS AND REST ENCOURAGED. LAST COWS 8. [facility]
[2018-01-27 20:00] VITALS: BP 111/64
[2018-01-27] MEDS: GABAPENTIN 300 MG CAPSULE PO SCH (20:03)
[2018-01-27] MEDS: diphenhydrAMINE 50 MG CAPSULE PO PRN (23:17)
--- NOTE | 2018-01-27 23:17 | NUR ---
PRN BENADRYL 50 MG 1 CAPSULE PO ADMINISTRATION Patient c/o insomnia. PRN Benadryl 50 mg PO administrated with full glass of water as ordered. All needs met. Safe and calm environment with minimized noises was provided. Safety measures on place. Call light within reach, bed in lowest position locked, padded rails up bilaterally. Will continue to monitor closely.
--- NOTE | 2018-01-27 23:27 | NUR ---
PRN CLONIDINE 0.1 MG 1 TABLET PO ADMINISTRATION PRN Clonidine 0.1 mg PO administrated for anxiety and agitation with full glass of water as ordered. All needs met. Safe and calm environment with minimized noises was provided. Safety measures on place. Call light within reach, bed locked in lowest position, padded rails up bilaterally. Will continue to monitor closely.
[2018-01-28] VITALS: BP 100/64
--- NOTE | 2018-01-28 00:17 | NUR ---
RE-ASSESSMENT Patient is sleeping. RR 17. Respirations even and unlabored. PRN Benadryl 50 mg 1 cap PO administrated for insomnia at 2317 as ordered was effective. All needs met. Safety measures on place. Call light within reach, bed in lowest position locked, padded rails up bilaterally. Will continue to monitor closely.
--- NOTE | 2018-01-28 00:27 | NUR ---
RE-ASSESSMENT Patient is sleeping. PRN Clonidine 0.1 mg PO administrated for BP:151/81, and Benadryl 50 mg PO administrated for insomnia were effective. All needs met. Safe and calm environment with minimized noises was provided. Safety measures on place. Call light within reach, bed locked in lowest position, padded rails up bilaterally. Will continue to monitor closely. RE-ASSESSMENT Patient is sleeping. Respirations even and unlabored. RR 16. PRN Clonidine 0.1 mg PO administrated for anxiety and agitation at 2327 was effective. All needs met. Safe and calm environment with minimized noises was provided. Safety measures on place. Call light within reach, bed locked in lowest position, padded rails up bilaterally. Will continue to monitor closely. Addendum: 01/28/18 at 0429 by STACEY SANDERS RN WRONG NOTE.
--- NOTE | 2018-01-28 04:00 | NUR ---
VS REFUSED, COWS DEFERRED VS refused, COWS deferred @0400 due to patient sleeping; to be assessed and scored while patient is awake. Patient's respirations are even and unlabored. RR:16. All needs met. Safety measures in place: Call light within reach, bed locked in low position, padded side rails up x2. Will continue to monitor closely.
[2018-01-28] MEDS: KETOROLAC TROMETHAMINE 30 MG INJ IM PRN (04:56)
[2018-01-28] MEDS: HYDROXYZINE PAMOATE 25 MG CAPSULE PO PRN (04:56)
--- NOTE | 2018-01-28 04:56 | NUR ---
PRN VISTARIL 25 MG PO ADMINISTRATION Patient c/o increased anxiety. PRN Vistaril 25 mg PO administrated for anxiety as ordered. Patient tolerated well. All needs met. Safe and calm environment with minimized noises was provided. Safety measures on place. Call light within reach, bed locked in lowest position, padded rails up bilaterally. Will continue to monitor closely.
--- NOTE | 2018-01-28 04:56 | NUR ---
PRN TORADOL INJ.(KETOROLAC TROMETHAMINE 30 MG INJ.) 30 MG/1 ML IM ADMINISTRATION PRN TORADOL INJ. 30 MG/1 ML IM ON LEFT DELTOID MUSCLE ADMINISTRATED FOR R/T BACK PAIN "05/01". PATIENT TOLERATED WELL. ALL NEEDS MET. SAFETY MEASURES ON PLACE: CALL LIGHT WITHIN REACH, BED IS LOCKED IN THE LOWEST POSITION, BED RAILS UP X2. WILL CONTINUE TO MONITOR CLOSELY.
[2018-01-28 05:00] VITALS: BP 114/68
--- NOTE | 2018-01-28 05:26 | NUR ---
RE-ASSESSMENT PATIENT IS SLEEPING. RESPIRATIONS ARE EVEN AND UNLABORED. RR 16. PRN TORADOL INJ. 30 MG/1 ML IM ON LEFT DELTOID MUSCLE ADMINISTRATED FOR D/T LOW BACK PAIN "05/01" @0041 WAS EFFECTIVE. ALL NEEDS MET. SAFETY MEASURES ON PLACE: CALL LIGHT WITHIN REACH, BED IS LOCKED, AND IN THE LOWEST POSITION, BED RAILS UP X2. WILL CONTINUE TO MONITOR CLOSELY.
--- NOTE | 2018-01-28 05:56 | NUR ---
RE-ASSESSMENT Patient is sleeping. RR 16. Respirations even and unlabored. PRN Vistaril 25 mg PO administrated for anxiety at 0456 as ordered was effective. All needs met. Safety measures on place. Call light within reach, bed in lowest position locked, padded rails up bilaterally. Will continue to monitor closely.
--- NOTE | 2018-01-28 07:08 | NUR ---
START OF SHIFT Pt is a 37 yr old female, A&Ox4. Pt was admitted on 01/26/18 for Opiate withdrawal and is on 5 day Subutex taper as ordered. Medication juancho well. Received report from night clerk nurse. Pt received Benadryl PRN, Clonidine PRN, Vistaril PRN, and Toradol PRN for s/s of w/d. Medication was effective. pt slept for 11 hrs. Last COWS score was 11. Pt is currently in bed sleeping with respirations even and unlabored. Skin is intact, warm and moist to touch. Safety precautions observed. Call light is within reach. Will continue to monitor.
--- NOTE | 2018-01-28 07:19 | NUR ---
END OF SHIFT NOTE Patient continues 5 day Subutex Taper for Opioid/Heroin and Methamphetamine withdrawal. Patient tolerated well. Patient remains compliant with treatment, medications, and diet regime. Withdrawal symptoms was closely monitored. Patient is alert and oriented x4. She is appears worry and sad with anxious mood. Patient encouraged to express her feelings. Education provided to use of Relaxation Techniques: Deep breathing exercises, guided imagery, and visualization. Patient noted disheveled, unkempt with uncombed hair. Educated in safety and hygiene care. Encouraged to independently perform hygiene care. COWS=11@2000, COWS=11 @0000. The most recent COWS=14 @0500. Last night patient presented with anxiety, agitation, depression, nervousness, tremors, sweating, restlessness, nasal stuffiness, body pain, insomnia, and fatigue. PRN Benadryl 50 mg 1 cap PO administrated for insomnia at 2317, PRN Clonidine 0.1 mg PO administrated for anxiety and agitation at 2327, PRN Vistaril 25 mg PO administrated for anxiety @0456, and PRN Toradol IM administrated for back pain "8" were effective. Safe and calm environment with minimized noises was provided. Patient slept 11 hours, intake 1,065 ml, voided x2. Patient encouraged to increase oral fluid intake as tolerated. Patient scheduled for discharging today. All needs met. Safety measures in the place: Call light within reach, bed in the lowest position locked, padded rails up x2. Patient endorsed to day shift nurse.
--- NOTE | 2018-01-28 08:00 | NUR ---
COWS DEFERRED Pt is currently in bed sleeping with respirations even and unlabored. COWS assessment is unable to be assess at this time. Safety precautions observed. Call light is within reach. Will continue to monitor.
[2018-01-28 08:07] VITALS: BP 113/65
[2018-01-28 08:07] LABS: HEPATITIS B SURFACE AG Negative (Negative)
[2018-01-28] MEDS ORDERED: BUPRENORPHINE HCL 2 MG TAB.SUBL SL SCH (09:00)
[2018-01-28] MEDS: GABAPENTIN 300 MG CAPSULE PO SCH ×3 (09:48→21:12)
--- NOTE | 2018-01-28 09:49 | NUR ---
COWS SCORE ASSESSMENT Pt is awake at this time. Pt is c/o anxiety, muscle aching, teary eyes and sweats. COWS score was 9. Subutex 4mg SL as scheduled at 0900 was given. Medication was juancho well. Will continue to monitor.
[2018-01-28 12:00] VITALS: BP 109/56
[2018-01-28] MEDS: BUPRENORPHINE HCL 2 MG TAB.SUBL SL SCH ×2 (14:09→21:13)
[2018-01-28 16:00] VITALS: BP 109/70
--- NOTE | 2018-01-28 19:15 | NUR ---
Start of Shift Patient Received. patient is noted in her bed, awake, alert and verbally responsive. Breathing even and non labored. Per endorsement, patient continues on a modified Subutex taper. Patient has been noted to be emotional and isolative to room. No PRN medications administered. last noted COWS 8. All needs attended to promptly. Will continue plan of care as ordered.
--- NOTE | 2018-01-28 19:18 | NUR ---
END OF SHIFT Pt is a 37 yr old female, AA&Ox4. Pt was admitted on 01/26/18 for Opiate withdrawal and is on 5 day Subutex taper as ordered. Medication juancho well. Pt has been cooperative with medication regimen and plan of care. Pt has been observed with anxiety but is able to cope with anxiety level. Pt was c/o muscle aching, chills, stomach cramping and teary eyes during the day. Pt states Subutex taper has been effective. Skin is intact, warm and moist to touch. No PRNs were given during the day. Last COWS score was 8 at 1600. Safety precautions observed. Call light is within reach.
[2018-01-28 20:53] VITALS: BP 114/75
[2018-01-28] MEDS: BACLOFEN 10 MG TABLET PO SCH (21:13)
[2018-01-28] MEDS: diphenhydrAMINE 50 MG CAPSULE PO PRN (21:13)
[2018-01-28] MEDS: CLONIDINE HCL 0.1 MG TABLET PO SCH (21:13)
--- NOTE | 2018-01-28 21:17 | NUR ---
PRN Medication Administration Patient is noted verbalizing inability of falling asleep as well as lower back aches 5/10. PRN Benadryl and Motrin administered with routine medications. Will continue to monitor.
--- NOTE | 2018-01-28 22:09 | NUR ---
PRN Medication Reassessment patient is noted in bed sleeping. Breathing even and non labored. No signs of restlessness or facial grimacing noted. PRN Benadryl and Motrin noted to be effective. Will continue to monitor.
[2018-01-29 00:53] VITALS: BP 111/69
[2018-01-29 04:04] VITALS: BP 109/63
--- NOTE | 2018-01-29 07:07 | NUR ---
End of Shift Patient is noted in bed sleeping. Breathing even and non labored. No signs of restlessness or discomfort noted. She continues on a modified Subutex taper. Patient was encouraged to participate in social activities prior to bed but patient was noted to remain in room. PRN Benadryl and Motrin administered with medication noted to be effective. Last noted CIWA 11. Patient noted to sleep a total of 8 hours. All needs attended to promptly. Will endorse to continue plan of care as ordered.
--- NOTE | 2018-01-29 07:30 | NUR ---
START OF SHIFT Pt 37 y/o female admitted for heroin withdrawal. Pt received in room on bed with eyes closed resting, but easily arousable to name. Perrla. Pt alert and oriented to name, place, and time. Perrla. Skin warm and moist to touch. Respirations even and unlabored. Bilateral hand tremors noted. Pt states feels anxious and does not feel well this morning. Pt appears disheveled with clothes scattered throughout the room. Encouraged to maintain hygiene. It was reported that pt slept for 8 hours last night. Pt is on a 5 day subutex taper and is on day 3. Bed on lowest position with side rails x2 up for safety. Call light within reach.
[2018-01-29 08:00] VITALS: BP 101/61
[2018-01-29] MEDS: BUPRENORPHINE HCL 2 MG TAB.SUBL SL SCH ×3 (08:35→21:26)
[2018-01-29] MEDS: BACLOFEN 10 MG TABLET PO SCH ×3 (08:35→21:26)
[2018-01-29] MEDS: GABAPENTIN 300 MG CAPSULE PO SCH ×3 (08:35→21:25)
[2018-01-29] MEDS: MIRALAX 17 GM POWD.PACK PO PRN (08:35)
[2018-01-29] MEDS: CLONIDINE HCL 0.1 MG TABLET PO SCH ×3 (08:35→21:25)
--- NOTE | 2018-01-29 08:39 | NUR ---
PRN Pt states has not had a BM since admission. Miralaax solution prn per MD order given and tolerated well.
[2018-01-29] MEDS: HYDROXYZINE PAMOATE 25 MG CAPSULE PO PRN (09:29)
--- NOTE | 2018-01-29 09:30 | NUR ---
PRN Pt very anxious in room with pressured speech noted. Vistaril po prn per MD order given and tolerated well.
--- NOTE | 2018-01-29 10:30 | NUR ---
ORION HUMPHRIES Pt observed in room on bed watching television.
[2018-01-29] MEDS ORDERED: HYDROXYZINE PAMOATE 25 MG CAPSULE PO PRN (11:45)
[2018-01-29 12:00] VITALS: BP 109/63
[2018-01-29 16:00] VITALS: BP 92/62
--- NOTE | 2018-01-29 18:33 | NUR ---
END OF SHIFT Pt 37 y/o female admitted for heroin withdrawal. Pt alert and oriented to name, place, and time. Perrla. Skin warm and moist to touch. Respirations even and unlabored. Bilateral hand tremors noted. Pt with periods of anxiety this morning, mainly about her evaluation assessment meeting for the location she is to be discharged too. Pt appears disheveled. Food wrappings and empty soda/water bottles scattered throughout the room. Encouraged to maintain hygiene. Pt observed mostly isolative to room throughout the day. Pt attended group activity. Pt was seen by MD today. Pt medication compliant and tolerated well. No ASE noted. Cows=11@0800, 9@1200, and 9@1600. Pt is on a 5 day subutex taper and is on day 3. Bed on lowest position with side rails x2 up for safety. Call light within reach.
[2018-01-29 20:00] VITALS: BP 104/51
--- NOTE | 2018-01-29 20:00 | NUR ---
Start of Shift Patient on bed, finishing her dinner, appears anxious, AAOx4. Pt c/o feeling constipated and requested for MOM. Pt is melancholic and isolative. With tremors on both hands noted. Patient verbalized generalized pain=3/10, refused medications at this time. Provided education, teachings and instructions on medications, plan of care and treatment. Fall, universal, seizure and safety prec in place. Call light within reach. Latest COWS=9. Will continue to monitor.
[2018-01-30] VITALS: BP 100/57
[2018-01-30] MEDS: KETOROLAC TROMETHAMINE 30 MG INJ IM PRN (03:00)
--- NOTE | 2018-01-30 03:00 | NUR ---
RN note PRN Toradol Pt c/o low back pain=06/01. Administered Toradol 30 mg IM PRN as ordered. Will reassess.
[2018-01-30 04:00] VITALS: BP 108/65
--- NOTE | 2018-01-30 04:00 | NUR ---
RN note reassess Pt's pain level decreased to 4/10. Toradol effective.
--- NOTE | 2018-01-30 07:11 | NUR ---
End of Shift Patient asleep on bed, arousable, AAOx4 and continues to be melancholic, isolative and depressed. With slight tremors noted. No c/o pain at this time. Fall, universal, seizure and safety prec in place. Call light within reach. Latest COWS=8, slept for 8 hours. Will continue to monitor.
--- NOTE | 2018-01-30 07:31 | NUR ---
START OF SHIFT Pt 37 y/o female admitted for heroin withdrawal. Pt received in room on bed with eyes closed resting, but easily arousable to name. Perrla. Pt alert and oriented to name, place, and time. Perrla. Skin warm and moist to touch. Respirations even and unlabored. Bilateral hand tremors noted. Pt appears disheveled with hair uncombed. Clothes and empty water bottles scattered throughout the room. Pt appears with low motivation for self care. Encouraged to maintain hygiene. It was reported that pt slept for 8 hours last night. Pt is on a 5 day subutex taper and is on day 4. Pt is on a5 day subutex taper and is on day 3. Bed on lowest position with side rails x2 up for safety. Call light within reach. Addendum: 01/30/18 at 0736 by RALF ERWIN RN correction Pt is on a 5 day subutex taper and is on day 4.
[2018-01-30 08:00] VITALS: BP 100/83
[2018-01-30] MEDS: MIRALAX 17 GM POWD.PACK PO PRN (08:17)
[2018-01-30] MEDS: BUPRENORPHINE HCL 2 MG TAB.SUBL SL SCH ×2 (08:17→20:53)
[2018-01-30] MEDS: BACLOFEN 10 MG TABLET PO SCH ×3 (08:18→20:52)
[2018-01-30] MEDS: GABAPENTIN 300 MG CAPSULE PO SCH ×3 (08:18→20:52)
[2018-01-30] MEDS: CLONIDINE HCL 0.1 MG TABLET PO SCH ×3 (08:18→20:53)
--- NOTE | 2018-01-30 09:00 | NUR ---
PRN Pt states is constipated. Miralaxx prn per MD order given and tolerated well.
[2018-01-30 12:00] VITALS: BP 106/78
[2018-01-30 16:00] VITALS: BP 91/58
--- NOTE | 2018-01-30 18:34 | NUR ---
START OF SHIFT NOTE: Patient is a 37 year old female patient admitted for Opiate/Heroin and Methamphetamine withdrawal, continues 5 day Subutex Taper, which tolerated well. Withdrawal symptoms monitoring closely. Patient is alert and oriented x4. She is appears with anxious affect, sad, and worry. Patient encouraged to express her feelings. Emotional support and reassuring provided. Patient noted unkempt with uncombed hair. Educated in safety and hygiene care. Encouraged to independently perform hygiene care. Last COWS=9 @1600: pt presented with anxiety, agitation, nervousness, tremors, sweating, restlessness, fatigue, and generalized body aches. PRN Miralax 17 mg/Powder Pack administrated for constipation at 0817 as ordered was effective per day shift nurse report. Patient remains compliant with treatment, medications, and diet regime per day shift nurse report. Encouraged to fluids intake as tolerated. Encouraged to attend group activities. All needs met. Safety measures in place: Call light within reach, bed is locked in lowest position, padded bed rails up bilaterally. Patient endorsed by outgoing day shift nurse. Will continue to monitor closely.
--- NOTE | 2018-01-30 18:34 | NUR ---
END OF SHIFT Pt 37 y/o female admitted for heroin withdrawal. Pt alert and oriented to name, place, and time. Perrla. Skin warm and moist to touch. Respirations even and unlabored. Bilateral hand tremors noted. Pt appears disheveled. Clothes scattered throughout the room. Encouraged to maintain hygiene. Pt observed mostly in the room today. Pt attended group activity. Pt with minimal peer interaction today. Pt was seen by MD today. Pt medication compliant and tolerated well. No ASE noted. Cows=9@0800, 9@1200, and 9@1600. Pt is on a 5 day subutex taper and is on day 4. Bed on lowest position with side rails x2 up for safety. Call light within reach.
[2018-01-30 20:00] VITALS: BP 117/68
[2018-01-30] MEDS: diphenhydrAMINE 50 MG CAPSULE PO PRN (20:53)
--- NOTE | 2018-01-30 20:53 | NUR ---
PRN BENADRYL 50 MG 1 CAPSULE PO ADMINISTRATION. Patient c/o insomnia. PRN Benadryl 50 mg PO administrated for insomnia as ordered. Patient tolerated well. Safe and calm environment provided. All needs met. Safety measures in place: Call light within reach, bed locked in lowest position, padded bed rails up bilaterally. Will continue to monitor closely.
--- NOTE | 2018-01-31 | NUR ---
VS REFUSED, COWS DEFERRED VS refused, COWS deferred at 0000 due to patient sleeping; to be assessed and scored while patient is awake. Patient's respirations are even and unlabored. RR:17. All needs met. Safety measures in place: Call light within reach, bed locked in low position, padded side rails up x2. Will continue to monitor closely.
--- NOTE | 2018-01-31 04:00 | NUR ---
VS REFUSED, COWS DEFERRED VS refused, COWS deferred at 0400 due to patient sleeping; to be assessed and scored while patient is awake. Patient's respirations are even and unlabored. RR:17. All needs met. Safety measures in place: Call light within reach, bed locked in low position, padded side rails up x2. Will continue to monitor closely.
[2018-01-31 05:30] VITALS: BP 100/57
--- NOTE | 2018-01-31 07:06 | NUR ---
END OF SHIFT NOTE: Patient is a 37 year old female continues 5 day Subutex Taper ordered for Opioid/ Heroin and Methamphetamine withdrawal. Patient is alert and oriented x4. She is appears sad, worry, with anxious mood. Encouraged to expresses her feelings. Emotional support provided. Educated to use of Relaxation Techniques: Deep breathing exercises, guided imagery, and visualization. COWS=11 @1999. Latest COWS=7 at 529. Patient presented with anxiety, agitation, nervousness, irritability, nasal congestion, restlessness, tremors, insomnia, sweating, and fatigue. PRN Benadryl 50 mg PO administrated for insomnia at 2052 was effective. Calm and safety environment with minimized noises provided. Patient remains compliant with treatment, medications, and diet regime. Patient slept 7 hours, intake 2,950 ml, voided x3. Encouraged to fluid intake as tolerated. Encourage to attended groups activities. Patient scheduled discharging today. All needs met. Safety measures in the place: Call light within reach, bed locked in the lowest position, padded rails up x2. Patient endorsed to day shift nurse.
--- NOTE | 2018-01-31 07:30 | NUR ---
START OF SHIFT Pt 37 y/o female admitted for heroin withdrawal. Pt received in room on bed awake watching television. Perrla. Pt alert and oriented to name, place, and time. Perrla. Skin warm and moist to touch. Respirations even and unlabored. Bilateral hand tremors noted. Pt appears disheveled. Empty water bottles scattered throughout the room. Pt anxious this morning. Encouraged to maintain hygiene. It was reported that pt slept for 7 hours last night. Pt is on a 5 day subutex taper and is on day 5. Bed on lowest position with side rails x2 up for safety. Call light within reach.
[2018-01-31 08:00] VITALS: BP 113/79
[2018-01-31] MEDS: BACLOFEN 10 MG TABLET PO SCH ×3 (08:16→21:49)
[2018-01-31] MEDS: GABAPENTIN 300 MG CAPSULE PO SCH ×3 (08:16→21:49)
[2018-01-31] MEDS: CLONIDINE HCL 0.1 MG TABLET PO SCH ×3 (08:17→21:00)
[2018-01-31] MEDS: MIRALAX 17 GM POWD.PACK PO PRN (08:17)
--- NOTE | 2018-01-31 08:17 | NUR ---
PRN Pt states is constipated but able to pass flatus. Miralaax powder solution mix prn per MD order given and tolerated well.
--- NOTE | 2018-01-31 08:17 | NUR ---
PRN Pt states feels very anxious. Vistaril po prn per MD order given and tolerated well.
[2018-01-31] MEDS ORDERED: BUPRENORPHINE HCL 2 MG TAB.SUBL SL SCH (09:00)
--- NOTE | 2018-01-31 09:17 | NUR ---
PRN KRISTEL Pt observed in room on bed with eyes closed resting, but easily arousable to name.
--- NOTE | 2018-01-31 09:17 | NUR ---
PRN EVAL Pt states did not have a BM
[2018-01-31 12:00] VITALS: BP 108/60
[2018-01-31] MEDS ORDERED: MAGNESIUM CITRATE 296 ML BOTTLE PO ONE (12:30)
[2018-01-31] MEDS: DOCUSATE SODIUM 250 MG CAPSULE PO SCH (12:57)
--- NOTE | 2018-01-31 13:08 | NUR ---
ONCE Pt was seen by MD for c/o constipation. New order for colace per MD order and Mg Citrate once per MD order given and tolerated well.
[2018-01-31] MEDS: ONDANSETRON ODT 4 MG TAB.RAPDIS SL PRN (13:19)
--- NOTE | 2018-01-31 13:19 | NUR ---
PRN Pt states feels nauseated. Zofrand odt prn per MD order given and tolerated well.
--- NOTE | 2018-01-31 14:19 | NUR ---
PRN EVAL Pt denies any nausea at this time.
[2018-01-31] MEDS ORDERED: CLON0.1T14 PO (15:28)
[2018-01-31] MEDS ORDERED: DOCU250C14 PO (15:28)
[2018-01-31] MEDS ORDERED: DICY20TA28 PO (15:28)
[2018-01-31] MEDS ORDERED: IBUP-1955 PO (15:28)
[2018-01-31] MEDS ORDERED: GABA-534 PO ×2 (15:28)
[2018-01-31] MEDS ORDERED: HYDR-3895 PO (15:28)
[2018-01-31] MEDS ORDERED: METH-406 PO (15:28)
[2018-01-31] MEDS ORDERED: DIPH50CA37 PO (15:28)
[2018-01-31 16:00] VITALS: BP 92/58
--- NOTE | 2018-01-31 18:38 | NUR ---
END OF SHIFT Pt 37 y/o female admitted for heroin withdrawal. Pt alert and oriented to name, place, and time. Perrla. Skin warm and moist to touch. Respirations even and unlabored. Bilateral hand tremors noted. Pt appears disheveled. Empty bottles scattered throughout the room. Encouraged to maintain hygiene. Pt with anxious episode this morning. Pt observed mostly in the room today. Pt attended group activity. Pt with minimal peer interaction today. Pt was seen by MD today. Pt medication compliant and tolerated well. No ASE noted. Cows=9@0800, 7@1200, and 5@1600. Pt is on a 5 day subutex taper and is on day 5. Pt is scheduled to be discharged tomorrow. Bed on lowest position with side rails x2 up for safety. Call light within reach.
[2018-01-31 20:00] VITALS: BP 90/57
--- NOTE | 2018-01-31 20:00 | NUR ---
START OF SHIFT NOTE RECEIVED REPORT FROM DAY SHIFT NURSE. PATIENT IS A 37 YEAR OLD FEMALE ADMITTED FOR OPIATE WITHDRAWAL. PATIENT COMPLETED SUBUTEX TAPER. PATIENT IS MEDICALLY CLEARED TO BE DISCHARGE TOMORROW. PATIENT WAS GIVEN PRN VISTARIL, COLACE, MAGNESIUM CITRATE, ZOFRAN AND MIRALAX. LAST COWS 5. RECEIVED PATIENT IN THE ROOM. PATIENT PRESENTS WITH ANXIETY, IRRITABILITY AND FATIGUE. SAFETY MEASURES IN PLACE. CALL LIGHT IN REACH. WILL CONTINUE TO MONITOR. Addendum: 01/31/18 at 2230 by SIMA CARRERA LVN FOLLOW UP: PER PATIENT , SHE HAD LARGE BOWEL MOVEMENT. MAGNESIUM CITRATE AND MIRALAX EFFECTIVE.
--- NOTE | 2018-01-31 21:49 | NUR ---
HELD CLONIDINE PATIENT'S CLONIDINE DUE TO PATIENT'S BP- 90/57, CLONIDINE WITH HOLD ORDER FOR BP <90/60
--- NOTE | 2018-02-01 | NUR ---
COW DEFERRED PATIENT IN BED SLEEPING. RESPIRATION EVEN AND UNLABORED. VS REFUSED. WILL CONTINUE TO MONITOR
--- NOTE | 2018-02-01 04:00 | NUR ---
COW DEFERRED PATIENT IN BED SLEEPING. RESPIRATION EVEN AND UNLABORED. VS REFUSED. WILL CONTINUE TO MONITOR
[2018-02-01] MEDS: KETOROLAC TROMETHAMINE 30 MG INJ IM PRN (04:11)
--- NOTE | 2018-02-01 04:11 | NUR ---
PRN TORADOL IM ADMINISTRATION PATIENT C/O LOWER BACK 05/01. WILL MONITOR FOR EFFECTIVENESS
--- NOTE | 2018-02-01 05:11 | NUR ---
PRN TORADOL IM INJ RE-ASSESSMENT PATIENT IN BED ASLEEP, RESPIRATION EVEN AND UNLABORED. NO FACIAL GRIMACING. WILL CONTINUE TO MONITOR
--- NOTE | 2018-02-01 07:04 | NUR ---
END OF SHIFT NOTE PATIENT SLEPT 9 HOURS. FLUID INTAKE 1,682. VOIDED X 3. NO BM. PATIENT COMPLETED SUBUTEX TAPER, TOLERATED WELL AND NO ADVERSE REACTION . PATIENT IS DISCHARGING TODAY. PATIENT IN THE ROOM MOST OF THE SHIFT. PATIENT PRESENTED WITH ANXIETY, IRRITABILITY AND FATIGUE BEGINNING OF SHIFT. AT 0411, PATIENT C/O LOWER BACK PAIN 8/10. PRN TORADOL IM INJECTION GIVEN . PATIENT HAD LARGE BOWEL MOVEMENT DURING SHIFT. SAFETY MEASURES IN PLACE. CALL LIGHT IN REACH. WILL CONTINUE TO MONITOR. LAST COWS 5.
--- NOTE | 2018-02-01 07:30 | NUR ---
Start of shift note; Received report from night nurse. Patient is AOX4. Patient is a 37 year old female admitted on 01/26/18 for Opiate/ Methamphetamine withdrawals. Patient completed treatment without any adverse reactions. Patient remained compliant with treatment plan and medication regime. Patient is medically cleared for discharge today. All safety measures secured. Will continue to monitor patient
[2018-02-01 08:00] VITALS: BP 104/87
[2018-02-01 08:05] VITALS: BP 104/87
[2018-02-01] MEDS: GABAPENTIN 300 MG CAPSULE PO SCH (08:05)
[2018-02-01] MEDS: BACLOFEN 10 MG TABLET PO SCH (08:05)
[2018-02-01] MEDS: CLONIDINE HCL 0.1 MG TABLET PO SCH (08:05)
[2018-02-01] MEDS: DOCUSATE SODIUM 250 MG CAPSULE PO SCH (08:05)
[2018-02-01] MEDS: ONDANSETRON ODT 4 MG TAB.RAPDIS SL PRN (08:33)
--- NOTE | 2018-02-01 08:34 | NUR ---
PRN Zofran Pt c/o nausea without vomiting. PRN Zofran administered.
--- NOTE | 2018-02-01 09:34 | NUR ---
Re-assessment; Patient denies nausea at this time. PRN medication effective.
--- NOTE | 2018-02-01 09:55 | NUR ---
Discharge note; Patient is AOX4, Patient completed treatment without any adverse reactions. Patient is medically cleared for discharge per MD. Patient left the hospital at exactly 0955 on 02/01/18. Patient denies S/I and H/I. Patient left in a stable condition.
== END 2018-02-01 09:55 | disposition other institution (70) | DRG 895 ==
LOC: SRC 21:53
PROVIDERS: ADMIT Internal Medicine; ATTEND Internal Medicine
PROC: HZ2ZZZZ Detoxification Services for Substance Abuse Treatment (ICD-10-PCS; principal; 2018-01-26)
PROC: HZ51ZZZ Individual Psychotherapy for Substance Abuse Treatment, Behavioral (ICD-10-PCS; 2018-01-29)
DX: F11.23 Opioid dependence with withdrawal (principal); D72.829 Elevated white blood cell count, unspecified; E86.0 Dehydration; F15.10 Other stimulant abuse, uncomplicated; G89.29 Other chronic pain; Z20.5 Contact with and (suspected) exposure to viral hepatitis; M50.80 Other cervical disc disorders, unspecified cervical region; F17.210 Nicotine dependence, cigarettes, uncomplicated; Z81.3 Family history of other psychoactive substance abuse and dependence; Z81.8 Family history of other mental and behavioral disorders; F41.9 Anxiety disorder, unspecified; M54.5 Low back pain; K59.00 Constipation, unspecified
CPT/HCPCS: 36415; 80307; 80324; 80361; 83735; 84703; 85025; 86592; 86705; 86803; 87340; 87806; A4663; G0480; J1885; Q0162; Q0163